=== PATIENT | male | born 1965 | race Caucasian/White ===

== ENCOUNTER 2017-01-17 13:30 | Emergency (ER) | payer BC ==
[~2017-01-17] VITALS: Ht 177.8 cm; Wt 107.8 kg
[2017-01-17 13:41] VITALS: BP 134/91; TEMP 36.8; Ht 177.8 cm; Wt 107.8 kg
[2017-01-17] MEDS ORDERED: DIPHTHERIA/TETANUS/PERTUSSIS 0.5 ML SYR/VIAL IM. ONE (14:00)
[2017-01-17] MEDS ORDERED: LIDO/EPINEPHRINE/SOD BICARB 20 ML VIAL INFIL ONE (14:00)
[2017-01-17] MEDS ORDERED: PRLSR20 PO (14:35)
--- NOTE | 2017-01-17 14:38 | EMERGENCY ROOM VISIT NOTE ---
ED Visit Note First contact with patient: 13:45 CHIEF COMPLAINT: Scalp laceration one hour ago HISTORY OF PRESENT ILLNESS: Patient is a 51-year-old white male who presents the emergency department for evaluation of a laceration to the top of the scalp , left hand side. He stood up and accidentally struck his head on a sharp metal edge of a dryer vent, causing the laceration described below. There was no loss of consciousness, he denies any headache, lightheadedness or dizziness. The bleeding was controlled with pressure. He rates his discomfort a 3/10. REVIEW OF SYSTEMS: Review of systems as per HPI. All other systems reviewed were negative. At least 6 systems reviewed. PMH: Electronic medical records are reviewed and summarized as above/below. See Problem List. Patient is unsure of his last tetanus vaccination, and does not believe that it is current. SOCIAL HISTORY: Patient lives at home with his family. Employed. He does not smoke. PHYSICAL EXAM: Vital Signs: Reviewed Nurse's notes. CONSTITUTIONAL: Patient is a pleasant, well-appearing 51-year-old white male who is awake and alert and in no acute distress. INTEGUMENTARY: There is a 3 cm laceration in the left scalp whose edges are gaping apart. EYES: PERRL, EOMI, no discharge or injection. NECK: Supple, nontender, no lymphadenopathy. NEUROLOGICAL: Alert and cooperative. Sensory and motor functions grossly intact. Normal gait. EMERGENCY DEPARTMENT COURSE: Patient's tetanus was updated. The wound was cleaned with saline and Betadine and irrigated with saline. Sterile technique was used and the wound was anesthetized with 1% buffered lidocaine with epinephrine. The wound edges were then approximated with 4, 4-0 interrupted nylon sutures. Bacitracin ointment was applied as a dressing. Patient tolerated the procedure well. His mechanism of injury is not consistent with concussion, skull fracture or acute intracranial bleed. Wound care measures were discussed. Medication reconciliation: I attest that I have personally reviewed the patient' s current medication list. Blood pressure screening : Patient was found to have normal blood pressure on screening and does not require follow-up. Problem List Medical Problems: (1) GERD (gastroesophageal reflux disease) Status: Chronic Surgical Problems: (1) History of hernia repair Status: Resolved (2) History of knee surgery Status: Resolved (3) History of vasectomy Status: Resolved Current/Historical Medications Scheduled PRN Omeprazole (Prilosec), 20 MG PO DAILY PRN for ACID REFLUX Allergies Coded Allergies: Sulfa Antibiotics (Unverified Allergy, Unknown, ., 01/17/17) Vital Signs Date Time Temp Pulse Resp B/P (MAP) Pulse Ox O2 Delivery O2 Flow Rate FiO2 01/17/17 14:43 72 16 95 01/17/17 13:41 36.8 76 18 134/91 96 Room Air Medications Administered Medications (Trade) Dose Ordered Sig/Alec Route Start Time Stop Time Status Last Admin Dose Admin Diphtheria/ Pertussis/Tetanus Vacc (Adacel Inj) 0.5 ml ONCE ONCE IM. 01/17/17 14:00 01/17/17 14:01 DC 01/17/17 14:07 0.5 ML Departure Information Impression Primary Impression: Laceration of scalp Referrals Sathish Goldstein III, M.D. (PCP) Patient Instructions My [facility] Additional Instructions Keep wound clean and dry. Do not allow any crusting or dried blood to accumulate on sutures. Clean gently with mild soap and water. We also use a 1 :1 solution of hydrogen peroxide/water on a Q-tip to clean the wound. Use an antibiotic ointment for 3-4 days, then let wound dry. Suture removal in 12-14 days. Return sooner for any signs of infection (increasing redness, swelling, drainage). Ice and elevate for swelling and pain. Ibuprofen 600 mg and Tylenol 1000 mg every 6 hrs for pain. Problem Qualifiers Primary Impression: Laceration of scalp Encounter type: initial encounter Qualified Codes: S01.01XA - Laceration without foreign body of scalp, initial encounter
[2017-01-17 14:43] VITALS: PULSE 72; O2SAT 95
== END 2017-01-17 14:40 | disposition home or self-care (01) ==
LOC: C.EDB 13:32 → C.EDD 14:40
DX: S01.01XA Laceration without foreign body of scalp, initial encounter (principal); W45.8XXA Other foreign body or object entering through skin, initial encounter; Y92.9 Unspecified place or not applicable; K21.9 Gastro-esophageal reflux disease without esophagitis

== ENCOUNTER 2017-03-05 13:25 | Emergency (ER) | payer BC, OTHER ==
[~2017-03-05] VITALS: Ht 177.8 cm; Wt 102.7 kg
[~2017-03-05 13:25] MED LIST: PRLSR20 PO
[2017-03-05 13:31] VITALS: Ht 177.8 cm; Wt 102.7 kg
[2017-03-05] MEDS ORDERED: ASPIRIN 81 MG CHEW PO STA (13:49)
[2017-03-05 13:53] VITALS: O2SAT 96
[2017-03-05] MEDS ORDERED: NITROGLYCERIN 0.4 MG SL PER TAB CHARGE SL PRN (14:00)
--- NOTE | 2017-03-05 14:13 | DIAGNOSTIC IMAGING REPORT ---
SINGLE VIEW CHEST CLINICAL HISTORY: Atypical chest pain. FINDINGS: An AP, portable, upright chest radiograph is obtained. No prior studies are available for comparison at the time of dictation. The examination is degraded by portable technique and patient rotation. The cardiomediastinal silhouette is unremarkable. The lungs and pleural spaces are clear. No pneumothorax is seen. The bony thorax is grossly intact. IMPRESSION: No active disease in the chest. Electronically signed by: Dewey Oh M.D. 03/05/2017 2:12 PM Dictated Date/Time: 03/05/2017 2:11 PM
[2017-03-05 14:19] LABS: BASO % 0.6 %; BASO ABS # 0.04 K/uL (0-0.2); EOS % 1.7 %; EOS ABS # 0.11 K/uL (0-0.5); HEMOGLOBIN 15.6 g/dL (14.0-18.0); IG# 0.03 K/uL (0.00-0.02); LYMPH % 29.4 %; LYMPH ABS # 1.87 K/uL (1.2-3.4); MEAN CELL VOLUME 87.8 fL (80-100); MEAN CORPUSCULAR HEMOGLOBIN 29.8 pg (25-34); MEAN CORPUSCULAR HGB CONC 33.9 g/dl (32-36); MEAN PLATELET VOLUME 10.7 fL (7.4-10.4); MONO % 6.8 %; MONO ABS # 0.43 K/uL (0.11-0.59); NEUT ABS # 3.88 K/uL (1.4-6.5); PLATELET COUNT 263 K/uL (130-400); RED CELL DISTRIBUTION WIDTH CV 13.3 % (11.5-14.5); RED CELL DISTRIBUTION WIDTH SD 42.7 fL (36.4-46.3); WHITE BLOOD COUNT 6.36 K/uL (4.8-10.8)
[2017-03-05] MEDS ORDERED: ASPI81TA28 PO (14:29)
[2017-03-05 14:39] LABS: ALBUMIN 3.6 gm/dl (3.4-5.0); ALT/SGPT 38 U/L (12-78); AST/SGOT 24 U/L (15-37); BLOOD UREA NITROGEN 21 mg/dl (7-18); CALCIUM 8.8 mg/dl (8.5-10.1); CARBON DIOXIDE 25 mmol/L (21-32); CREATININE 1.13 mg/dl (0.60-1.40); GLUCOSE 123 mg/dl (70-99); LIPASE 186 U/L (73-393); POTASSIUM 3.8 mmol/L (3.5-5.1); SODIUM 138 mmol/L (136-145)
[2017-03-05 14:46] LABS: ALKALINE PHOSPHATASE 71 U/L (45-117); CKMB 2.8 ng/ml (0.5-3.6); TOTAL PROTEIN 7.3 gm/dl (6.4-8.2)
--- NOTE | 2017-03-05 16:12 | EMERGENCY ROOM VISIT NOTE ---
History First contact with patient: 13:37 Chief Complaint: CHEST PAIN Stated Complaint: CHEST PAIN,TINGLING IN LEFT ARM,TIGHTNESS Nursing Triage Summary: triage note: pt reports left sided chest tightness since approx 1100 today. History of Present Illness The patient is a 52 year old male who presents to the Emergency Room with complaints of left-sided chest pain. The patient states that approximately 11 AM while he was at work he felt a cramp that started in the left side of his abdomen and went up through the left side of his chest. He states it only lasted a few minutes. He had another similar episode after lunch which is why he came to the emergency room. The patient states that he just has a " different feeling" in the left side of his chest since the 2 incidents of that cramping sensation. The patient also admits to some tingling sensation in his left arm and some left-sided neck pain but that has been going on for several weeks. He thinks he pinched something in his neck. The patient denies any jaw pain, shortness of breath, diaphoresis, nausea, vomiting. The patient denies any abdominal pain. The patient does admit to a history of GERD. He takes Prilosec on an as-needed basis. He has not been taking it over the last week. The patient is a nonsmoker. The patient denies any recent leg pain. He does admit that he traveled to [place] in a car but he got out of the car at least once any distraction. The patient denies any recent surgeries. The patient denies any personal history of hypertension or hyperlipidemia. He denies any history of CAD. There is no family history of early heart disease. His father was diagnosed with CAD at age 78 and had a triple bypass. The patient takes a baby aspirin daily. Review of Systems 10 system review was performed and was negative unless stated otherwise history of present illness. Past Medical/Surgical History Medical Problems: (1) GERD (gastroesophageal reflux disease) Surgical Problems: (1) History of hernia repair (2) History of knee surgery (3) History of vasectomy Social History Smoking Status: Never Smoker Alcohol Use: occasionally Marital Status: Housing Status: lives with family Occupation Status: employed Current/Historical Medications Scheduled Aspirin (Aspirin Ec), 81 MG PO QAM Scheduled PRN Omeprazole (Prilosec), 20 MG PO DAILY PRN for ACID REFLUX Physical Exam Vital Signs Date Time Temp Pulse Resp B/P (MAP) Pulse Ox O2 Delivery O2 Flow Rate FiO2 03/05/17 15:07 36.6 64 18 111/64 96 Room Air 03/05/17 13:53 96 Room Air 03/05/17 13:52 95 Room Air 03/05/17 13:46 75 03/05/17 13:31 36.6 98 18 149/91 92 Room Air Physical Exam GENERAL: 52-year-old male appears in no acute distress. MENTAL Status: Alert and oriented 3. EYES: PERRLA. EOMs intact. EARS: Canals clear. TMs without fluid level noted. NECK: Supple, no lymphadenopathy noted. No carotid bruits noted. LUNGS: Clear auscultation without wheezes rales or rhonchi. CARDIAC: Regular rate and rhythm without murmur. Pulses is full and equal throughout. ABDOMEN: Positive bowel sounds all 4 quadrants. Soft, nontender to palpation without organomegaly or masses. LOWER EXTREMITIES: No cyanosis or edema noted. Calves are nontender. Negative Homans bilaterally. Medical Decision & Procedures ER Provider Diagnostic Interpretation: SINGLE VIEW CHEST CLINICAL HISTORY: Atypical chest pain. FINDINGS: An AP, portable, upright chest radiograph is obtained. No prior studies are available for comparison at the time of dictation. The examination is degraded by portable technique and patient rotation. The cardiomediastinal silhouette is unremarkable. The lungs and pleural spaces are clear. No pneumothorax is seen. The bony thorax is grossly intact. IMPRESSION: No active disease in the chest. Electronically signed by: Dewey Oh M.D. 03/05/2017 2:12 PM Dictated Date/Time: 03/05/2017 2:11 PM Laboratory Results 03/05/17 13:45 Red Blood Count 5.24, Mean Corpuscular Volume 87.8, Mean Corpuscular Hemoglobin 29.8, Mean Corpuscular Hemoglobin Concent 33.9, Mean Platelet Volume 10.7, Neutrophils (%) (Auto) 61.0, Lymphocytes (%) (Auto) 29.4, Monocytes (%) (Auto) 6.8, Eosinophils (%) (Auto) 1.7, Basophils (%) (Auto) 0.6, Neutrophils # (Auto) 3.88, Lymphocytes # (Auto) 1.87, Monocytes # (Auto) 0.43, Eosinophils # (Auto) 0.11, Basophils # (Auto) 0.04 03/05/17 13:45 Test 03/05/17 13:45 03/05/17 13:49 03/05/17 15:45 White Blood Count 6.36 K/uL (4.8-10.8) Red Blood Count 5.24 M/uL (4.7-6.1) Hemoglobin 15.6 g/dL (14.0-18.0) Hematocrit 46.0 % (42-52) Mean Corpuscular Volume 87.8 fL (80-100) Mean Corpuscular Hemoglobin 29.8 pg (25-34) Mean Corpuscular Hemoglobin Concent 33.9 g/dl (32-36) Platelet Count 263 K/uL (130-400) Mean Platelet Volume 10.7 fL (7.4-10.4) Neutrophils (%) (Auto) 61.0 % Lymphocytes (%) (Auto) 29.4 % Monocytes (%) (Auto) 6.8 % Eosinophils (%) (Auto) 1.7 % Basophils (%) (Auto) 0.6 % Neutrophils # (Auto) 3.88 K/uL (1.4-6.5) Lymphocytes # (Auto) 1.87 K/uL (1.2-3.4) Monocytes # (Auto) 0.43 K/uL (0.11-0.59) Eosinophils # (Auto) 0.11 K/uL (0-0.5) Basophils # (Auto) 0.04 K/uL (0-0.2) RDW Standard Deviation 42.7 fL (36.4-46.3) RDW Coefficient of Variation 13.3 % (11.5-14.5) Immature Granulocyte % (Auto) 0.5 % Immature Granulocyte # (Auto) 0.03 K/uL (0.00-0.02) Anion Gap 6.0 mmol/L (3-11) Est Creatinine Clear Calc Drug Dose 93.9 ml/min Estimated GFR () 87.4 Estimated GFR (Non- 75.4 BUN/Creatinine Ratio 18.3 (10-20) Calcium Level 8.8 mg/dl (8.5-10.1) Total Bilirubin 0.4 mg/dl (0.2-1) Direct Bilirubin < 0.1 mg/dl (0-0.2) Aspartate Amino Transf (AST/SGOT) 24 U/L (15-37) Alanine Aminotransferase (ALT/SGPT) 38 U/L (12-78) Alkaline Phosphatase 71 U/L (45-117) Creatine Kinase MB 2.8 ng/ml (0.5-3.6) Total Protein 7.3 gm/dl (6.4-8.2) Albumin 3.6 gm/dl (3.4-5.0) Lipase 186 U/L (73-393) Creatine Kinase MB Ratio (0-3.0) Bedside Troponin I < 0.030 ng/ml (0-0.045) Medications Administered Medications (Trade) Dose Ordered Sig/Alec Route Start Time Stop Time Status Last Admin Dose Admin Aspirin (Aspirin Chew) 324 mg NOW STAT PO 03/05/17 13:49 03/05/17 13:53 DC 03/05/17 13:58 324 MG ECG Indication: chest pain Rhythm: normal sinus Findings: no acute ischemic change ED Course The patient was evaluated. The patient was placed on a monitor and continuous pulse ox. IV access was obtained. EKG was ordered and interpreted as above without any acute ST findings. Portal chest x-ray was ordered and interpreted by the radiologist as above without any acute findings. CBC and differential, renal profile, LFTs and lipase levels were ordered. Coags, CK-MB, point-of- care troponin was ordered. The patient was given 324 mg of chewable aspirin. Patient was given nitroglycerin. The patient was reevaluated and stated that his pain was gone. Labs are reviewed and were unremarkable. Troponin was within normal range. A second troponin will be drawn and 90 minutes. Second troponin was normal. The patient's case was discussed with Dr. Ji who agree with treatment plan. The patient was discharged home in stable condition. Medical Decision Differential diagnosis include PE, pneumonia, bronchitis, muscular strain, [place], GERD [place] Drug Monitoring Program Search Results: patient reviewed within database Medication Reconcilliation Current Medication List: was personally reviewed by me Blood Pressure Screening Patient's blood pressure: Normal blood pressure Impression Primary Impression: Non-cardiac chest pain Additional Impression: GERD (gastroesophageal reflux disease) Departure Information Dispostion Home / Self-Care Condition GOOD Referrals Sathish Goldstein III, M.D. (PCP) Forms Call Back Authorization, HOME CARE DOCUMENTATION FORM, IMPORTANT VISIT INFORMATION Patient Instructions Chest Pain - [facility], ED GERD, My [facility] Additional Instructions Avoid spicy or acidic foods. Do not eat several hours before you go to bed. Recommend taking your Prilosec daily. If you experience any severe chest pain, shortness of breath, diaphoresis, pain going down your left arm or jaw pain return to the ER immediately. Recommend follow-up with your family doctor in 2 days. Problem Qualifiers Additional Impression: GERD (gastroesophageal reflux disease) Esophagitis presence: esophagitis presence not specified Qualified Codes: K21.9 - Gastro-esophageal reflux disease without esophagitis
[2017-03-05 16:17] VITALS: BP 113/74; PULSE 60; TEMP 36.7; O2SAT 97
== END 2017-03-05 16:35 | disposition home or self-care (01) ==
LOC: C.EDB 13:27
DX: R07.89 Other chest pain (principal); K21.9 Gastro-esophageal reflux disease without esophagitis; Z79.82 Long term (current) use of aspirin